=== PATIENT | male | born 1985 | race Caucasian/White ===

== ENCOUNTER 2019-07-26 19:39 | Emergency (ER) | payer OTHER ==
--- NOTE | 2019-07-26 20:09 | ED Physician Documentation ---
PD HPI LOWER EXT INJURY - Stated complaint Stated Complaint: RT FOOT INJURY - Chief complaint Chief Complaint: Trauma Ext - History obtained from History obtained from: Patient - History of Present Illness PD HPI LOW EXT INJURY LOCATION: Right, Foot Type of injury: Blunt / blow (dropped a propane tank on it) Review of Systems Constitutional: reports: Reviewed and negative Throat: reports: Reviewed and negative Cardiac: reports: Reviewed and negative PD PAST MEDICAL HISTORY - Past Medical History Past Medical History: No - Past Surgical History Past Surgical History: No - Present Medications Home Medications: Ambulatory Orders Medication Instructions Recorded Confirmed Cephalexin [Keflex] 500 mg PO Q6H #28 capsule 07/26/19 - Allergies Allergies/Adverse Reactions: Allergies Allergy/AdvReac Type Severity Reaction Status Date / Time No Known Drug Allergies Allergy Verified 07/26/19 19:46 - Social History Does the pt smoke?: No Smoking Status: Never smoker Does the pt drink ETOH?: Yes Does the pt have substance abuse?: No - Immunizations Immunizations are current?: Yes - POLST Patient has POLST: No PD ED PE NORMAL - Vitals Vital signs reviewed: Yes - General General: Alert and oriented X 3, No acute distress - Extremities Extremities: Other (There is some abrasions over the proximal parts of the second and third digits of the toes over the proximal phalanges with some underlying tenderness but no limited range of motion. Nothing that needs suturing.) - Neuro Neuro: Alert and oriented X 3, Normal speech Results - Vitals Vitals: Vital Signs - 24 hr 07/26/19 19:42 Temperature 36.3 C L Heart Rate 57 L Respiratory 16 Rate Blood Pressure 135/63 H O2 Saturation 96 Oxygen O2 Source Room air Procedures - General procedure General procedure: After a digital block with lidocaine the third toe was reduced visually, Then irrigated, dressed with Telfa and olivia taped to the large toe and placed in a fracture shoe. Departure - Departure Disposition: 01 Home, Self Care Clinical Impression: Open fracture of phalanx of left third toe Qualifiers: Encounter type: initial encounter Qualified Code(s): S92.502B - Displaced unspecified fracture of left lesser toe(s), initial encounter for open fracture Condition: Good Record reviewed to determine appropriate education?: Yes Instructions: ED Fx Toe Open Prescriptions: Cephalexin [Keflex] 500 mg PO Q6H #28 capsule Comments: Keep the toes olivia taped and in the special shoe as shown. Elevate. [place] as possible with the copy of the x- rays on CD for recheck. Return if worse.
[2019-07-26] MEDS ORDERED: CEPHALEXIN 250 MG Prepack 8 CAP BOTTLE PO STA (20:31)
--- NOTE | 2019-07-26 20:53 | XRAY Report ---
Reason: foot inj 2nd/3rd toes Procedure Date: 07/26/2019 Accession Number: [id number] / [id number] Procedure: XR - Foot 3 View RT CPT Code: Final Report FULL RESULT: EXAM: RIGHT FOOT RADIOGRAPHY EXAM DATE: 07/26/2019 08:29 PM. CLINICAL HISTORY: Foot inj 2nd/3rd toes. COMPARISON: None. TECHNIQUE: 3 views. FINDINGS: Bones: Positive for a fracture with mild displacement of the distal metaphysis third proximal phalanx. Joints: Normal. No subluxations. Soft Tissues: There is soft tissue swelling of the third digit. IMPRESSION: Fracture of the third proximal phalanx. [facility]
[2019-07-26 21:07] VITALS: BP 122/68
== END 2019-07-26 21:07 | disposition home or self-care (01) ==
LOC: ED 19:39
DX: S92.511B Displaced fracture of proximal phalanx of right lesser toe(s), initial encounter for open fracture (principal); S90.414A Abrasion, right lesser toe(s), initial encounter; W20.8XXA Other cause of strike by thrown, projected or falling object, initial encounter
CPT/HCPCS: 28515